=== PATIENT | male | born 1970 | race Caucasian/White ===

== ENCOUNTER 2017-04-14 10:48 | Emergency (ER) | payer SELFPAY ==
--- NOTE | 2017-04-14 12:14 | ED ORDER SUMMARY ---
..... Patient: HAYLEE MARTIN OrderSheet [facility] VisitID: [id number] [address] [place] [place] [address] 46y, M Registration Date/Time: 04/14/2017 ORDER SHEET Weight: 61.2 kg (stated) Allergies: No Known Drug Allergy GENERAL ORDERS: MEDICATION ORDERS: Albuterol Neb Tx 2.5 mg (NOW) (11:04/14/2017 Bari Roche) (11:43 LWhalcharles R.N.) DuoNeb Neb Tx 1 unit dose (NOW) (11:04/14/2017 Bair Roche) (11:43 LWhalcharles R.N.) Albuterol Neb Tx 5 mg (once now) (11:42 04/14/2017 Bari Roche) (11:44 MRobideau) IV FLUIDS: Solu-MEDROL IV 125 mg (NOW) (11:04/14/2017 Bari Roche) (11:08 LSullivan R.N.) IV Saline Lock (11:04/14/2017 Bari Roche) (11:10 LSullivan R.N.) ORDER SHEET NOTES: [Electronically signed by Shanika Solorzano R.N. (10:51 04/17/2017)] [Electronically signed by Raghav Salas Dr. (14:42 04/20/2017)] [Electronically locked/signed by Shanika Solorzano R.N. (10:51 04/17/2017)]
--- NOTE | 2017-04-14 12:14 | ED CLINICAL REPORT ---
Clinical Report - Physicians/Mid Levels [facility] [address] [place] [address] 04/14/2017 10:50 Patient: HAYLEE MARTIN Time Seen: 1100. Arrived- By private vehicle. Historian- patient. HISTORY OF PRESENT ILLNESS Chief Complaint: WHEEZING and HISTORY OF ASTHMA. This started yesterday and is still present (unchanged). It was abrupt in onset and has been constant but is not gone now. The dyspnea is described as moderate. He has had dyspnea at rest. No cough, sputum production or chest pain or discomfort. Asthma triggers: unknown. Takes asthma medications. (ran out of inhaler). Similar symptoms previously: Many times. Recent medical care: Not recently seen/assessed. REVIEW OF SYSTEMS No sore throat, nasal discharge, sinus drainage, fever or palpitations. All systems otherwise negative, except as recorded above. PAST HISTORY See nurses notes. Additional Surgeries: no known surgeries. Medications: Albuterol Sulfate HFA Inhalation. Allergies: No Known Drug Allergy. SOCIAL HISTORY Smoker- current status unknown. No alcohol use or drug use. No recent travel. Is a local resident. ADDITIONAL NOTES The nursing notes have been reviewed. PHYSICAL EXAM Vital Signs: 04/14/2017 10:58 BP: 155/127. HR: 115. RR: 32. O2 saturation: 85%. Temp: 98.6 F. Blood pressure normal. Oxygen saturation normal. Appearance: Alert. Patient in mild distress. (non-toxic). Eyes: Pupils equal, round and reactive to light. Eyes normal inspection. ENT: Ears normal. Nose normal. Pharynx normal. Uvula midline. Neck: Normal inspection. Neck supple. CVS: Normal heart rate and rhythm. Heart sounds normal. Pulses normal. Respiratory: Mild respiratory distress. Breath sounds abnormal. Expiratory moderate bilateral wheezes diffusely. No stridor, rales or rhonchi. Abdomen: Soft and nontender. No organomegaly. Skin: Skin warm and dry. Normal skin color. No rash. Normal skin turgor. Extremities: Extremities exhibit normal ROM. No lower extremity edema. PROGRESS AND PROCEDURES Course of Care: he patient is a pleasant 46-year-old male presenting for evaluation of shortness of breath. Patient is obviously wheezing on examination. Patient with history of asthma. Patient states he had run out of his inhaler. Patient was managed conservatively at this time with breathing treatments. Patient deviates from the expected course, we'll consider other options and workup includinglaboratory studies and chest x-ray. Patient is nontoxic at this time. No other abnormalities noted. Patient is afebrile. Do not feel that this is a bacterial infectious etiology. Patient's workup was remarkable for the findings above. Because the patient's improved symptoms with deep breathing treatments, patient likely with acute asthma exacerbation. Patient will be given a course of steroids and refills of his inhaler. Recommended patient follow up with his primary care Dr. for further management of his asthma/reactive airway disease. Patient states that he is in the process of obtaining a primary care Dr. Recommended patient called the number in the back of his insurance card or establish care with [facility] nearby. Patient is stable for outpatient management. Patient reported that his symptoms are now down to a 1 or 2 out of 10 in severity if 10 was a level that he first presented here to the emergency department with. Because the patient significantly improved symptoms, feel the patient is a stable outpatient candidate. I discussed with the patient isworkup here in the emergency department including diagnosis, home care, follow-up, and return precautions. All questions Have been answered. The patient expressed understanding of these instructions and was agreeable to them. Disposition: Discharged. Condition: good. CLINICAL IMPRESSION 04/14/2017 11:02 BP: 131/82. HR: 114. RR: 25. O2 saturation: 100%. Blood pressure normal. Oxygen saturation normal. Moderate persistent asthma with an acute exacerbation. No status asthmaticus. Hypoxia (acute resolved). INSTRUCTIONS Warnings: GENERAL WARNINGS: Return or contact your physician immediately if your condition worsens or changes unexpectedly, if not improving as expected, or if other problems arise. Specifically return if pain, vomiting, bleeding, breathing difficulty or fever. Your Current Medications: CONTINUE TAKING THE FOLLOWING MEDICATIONS: Albuterol Sulfate HFA Inhalation. Prescription Medications: Albuterol HFA oral inhaler: inhale 1-2 puffs via spacer every 4 hours as needed for wheezing, difficulty breathing or shortness of breath. Dispense two (2) units. No refill. Prednisone 50 mg: take 1 orally every day for 5 days. Dispense five (5). No refills. Follow-up: Return to the emergency department as needed. Follow up with your doctor in three days. Reason for referral: recheck today's concerns. Summary of care provided to patient via paper. Screening today revealed the patient's blood pressure to be in the normal range. The patient should follow up with a primary care provider for blood pressure management. Understanding of the discharge instructions verbalized by patient. (Electronically signed by Raghav Salas Dr. 04/20/2017 14:42)
--- NOTE | 2017-04-14 12:14 | ED NURSING NOTES ---
Clinical Report - Nurses [facility] [place] [address] [address] 04/14/2017 10:50 Patient: HAYLEE MARTIN TRIAGE Triage time 10:48 Apr 14 2017. Acuity: LEVEL 2. Chief Complaint: "ASTHMA ATTACK" and WHEEZING. NATHEN COMA SCORE: [place] Coma Scale: 15- eyes open spontaneously (4); best verbal response- oriented x 4 (5); best motor response- obeys commands (6). --11:01 Shanika Solorzano R.N. 10:58 04/14/17. BP: 155/127. HR: 115. RR: 32. O2 saturation: 85%. Temp: 98.6 F. Pain level now 0/10. --11:01 Shanika Solorzano R.N. Weight: 61.2 kg stated. Height/Length: 66 inches Per Patient. BMI: 21.8. --11:01 Shanika Solorzano R.N. Medications Albuterol Sulfate HFA Inhalation. --10:59 Shanika Solorzano R.N. Allergies No Known Drug Allergy. --10:59 Shanika Solorzano R.N. History Arrived by private vehicle. Historian: patient. Accompanied by friend. This started just prior to arrival. ( Ran out of albuterol inhaler and had asthma attack prior to arrival.). He has had a cough and wheezing. No fever, chills, chest pain or back pain. Treatment MAINSPRING WINDER AND OILER: None. PAST MEDICAL HX: Asthma. Chronic obstructive pulmonary disease. No history of congestive heart failure, diabetes mellitus or hypertension. Immunizations: up-to-date. SOCIAL HX: Current every day light tobacco smoker (cigarette)- less than 1/2 a pack per day. No alcohol use or drug use. SELF HARM ASSESSMENT: A self harm assessment was performed. The patient answered "no" to the question "Have you recently felt down, depressed, or hopeless?" and "Do you have thoughts of harming or killing yourself?". FALL RISK ASSESSMENT: Fall risk assessment completed. No fall risk identified. NUTRITIONAL RISK ASSESSMENT: The nutritional risk assessment revealed no deficiencies. FUNCTIONAL ASSESSMENT: Functional assessment: no impairments noted. LEARNING NEEDS ASSESSMENT: The learning needs assessment revealed no barriers. ABUSE ASSESSMENT: Abuse assessment: (yes) The patient was asked "Do you feel safe in your home?". SKIN INTEGRITY ASSESSMENT: Skin integrity risk assessment completed. No skin integrity risk identified. --11:01 Shanika Solorzano R.N. ( Received call from admitting that a patient was checking in and was having an asthma attack, prior to triage, brought back immediately to ED, RT notified on arrival and came down to give neb treatments. Pt started feeling better after the first treatment.). --11:13 Kaycee Brown R.N. PROBLEMS: COPD - Chronic Obstructive Pulmonary Disease. Asthma. --10:59 Shanika Solorzano R.N. ADDITIONAL SURGERIES: no known surgeries. Interventions ID band on patient. --11: Shanika Solorzano R.N. PHYSICAL ASSESSMENT Ambulatory to room. GENERAL / NEURO / PSYCH: Alert. Oriented X 4. Appears in distress. HEENT: Mucous membranes are pink. RESPIRATORY: Moderate respiratory distress. The patient can speak one word at a time. Accessory muscle use. Wheezing present. CVS: Normal sinus rhythm noted. Cardiac rhythm: sinus tachycardia. Capillary refill less than 2 seconds. GI / : Abdomen soft and nontender. Bowel sounds within normal limits. SKIN: Skin is warm and dry. Normal skin turgor. --11:02 Shanika Solorzano R.N. NURSING PROGRESS NOTES The initial plan of care for this patient includes an assessment with efforts to address patient positioning, appropriate ambient lighting and comfortable environmental temperature; impairment of the respiratory system. child monitor, pulse oximeter and NIBP monitor placed on patient. Head of bed elevated 90 degrees. Reassurance given. Call light placed in reach. Side rails up x 1. Bed placed in lowest position. Brakes of bed on. --11: Shanika Solorzano R.N. 11:02 04/14/17. BP: 131/82. HR: 114. RR: 25. O2 saturation: 100%. Pain level now 0/10. --11:02 Shanika Solorzano R.N. 10:58 04/14/2017 Site #1 started via IV in the right hand with an 20g angiocath, with aseptic technique and good blood return; one attempt. Blood drawn: rainbow set. Labeled in the presence of the patient and sent to the lab. Saline lock flushed with 10 mL saline. --11:03 Shanika Solorzano R.N. 11:08 04/14/2017 SOLU-MEDROL (MethylPREDNISolone Sodium Succ) IVP 125 mg given over 3 minute(s) via site #1. Allergies verified and confirmed 5 rights. --11:08 Kaycee Brown R.N. 11:18 04/14/2017 Albuterol Neb TX Nebulizer 2.5 mg given. Given by the respiratory therapist. Allergies verified and confirmed 5 rights. --11:43 Shanika Solorzano R.N. 11:28 04/14/2017 Duoneb (Ipratropium-Albuterol) Neb TX Nebulizer 1 unit dose given. Given by the respiratory therapist. Allergies verified and confirmed 5 rights. --11:43 Shanika Solorzano R.N. 11:44 04/14/2017 Albuterol Neb TX Nebulizer 2 unit dose given. Given by the respiratory therapist. Allergies verified and confirmed 5 rights. --11:44 Ryan Gardner 12:30 04/14/17. BP: 123/79. HR: 72. RR: 16. O2 saturation: 95% on room air. 12:15 04/14/17. BP: 125/87. HR: 88. RR: 18. O2 saturation: 96% on room air. 12:00 04/14/17. BP: 93/78. HR: 72. RR: 20. O2 saturation: 95%. 11:45 04/14/17. BP: 111/78. HR: 82. RR: 18. O2 saturation: 95%. 11:25 04/14/17. BP: 117/80. HR: 90. RR: 22. O2 saturation: 98%. --12:48 Shanika Solorzano R.N. DISPOSITION / DISCHARGE Departure time: 12:45 Apr 14 2017. Condition at departure: improved. No learning barriers present. Discharge instructions provided and reviewed with the patient. Reviewed warnings. Reviewed medication(s). Treatments reviewed. Reviewed referrals. Patient verbalized understanding. Written instructions provided in Spanish. The patient was discharged home and accompanied by fiberline supervisor. He left the Emergency Department ambulatory and via private vehicle. Supervisor Production Managing driving. --12:45 Shnaika Solorzano R.N. 12:44 04/14/17. BP: 113/72. HR: 74. RR: 13. O2 saturation: 95%. Temp: 98.6 F. Pain level now 0/10. --12:45 Shanika Solorzano R.N. 12:40 04/14/2017 Site #1 removed upon discharge. Catheter intact. Pressure dressing applied. --12:45 Shanika Solorzano R.N. Locked/Released at 04/17/2017 10:51 by Shanika Solorzano R.N.
--- NOTE | 2017-04-14 12:14 | ED ORDER SUMMARY ---
..... Patient: HAYLEE MARTIN OrderSheet [facility] VisitID: [id number] [address] [place] [address] 46y, M Registration Date/Time: 04/14/2017 ORDER SHEET Weight: 61.2 kg (stated) Allergies: No Known Drug Allergy GENERAL ORDERS: MEDICATION ORDERS: Albuterol Neb Tx 2.5 mg (NOW) (11:04/14/2017 Bari Roche) (11:43 LWhalcharles R.N.) DuoNeb Neb Tx 1 unit dose (NOW) (11:04/14/2017 Bari Roche) (11:43 LWhalcharles R.N.) Albuterol Neb Tx 5 mg (once now) (11:42 04/14/2017 Bari Roche) (11:44 MRobideau) IV FLUIDS: Solu-MEDROL IV 125 mg (NOW) (11:04/14/2017 Bari Roche) (11:08 LSullivan R.N.) IV Saline Lock (11:04/14/2017 Bari Roche) (11:10 LSullivan R.N.) ORDER SHEET NOTES: [Electronically signed by Shanika Solorzano R.N. (10:51 04/17/2017)] [Electronically signed by Raghav Salas Dr. (14:42 04/20/2017)] [Electronically locked/signed by Shanika Solorzano R.N. (10:51 04/17/2017)]
--- NOTE | 2017-04-14 12:14 | ED NURSING NOTES ---
Clinical Report - Nurses [facility] [place] [address] [place] [address] 04/14/2017 10:50 Patient: HAYLEE MARTIN TRIAGE Triage time 10:48 Apr 14 2017. Acuity: LEVEL 2. Chief Complaint: "ASTHMA ATTACK" and WHEEZING. NATHEN COMA SCORE: [place] Coma Scale: 15- eyes open spontaneously (4); best verbal response- oriented x 4 (5); best motor response- obeys commands (6). --11:01 Shanika Solorzano R.N. 10:58 04/14/17. BP: 155/127. HR: 115. RR: 32. O2 saturation: 85%. Temp: 98.6 F. Pain level now 0/10. --11:01 Shanika Solorzano R.N. Weight: 61.2 kg stated. Height/Length: 66 inches Per Patient. BMI: 21.8. --11:01 Shanika Solorzano R.N. Medications Albuterol Sulfate HFA Inhalation. --10:59 Shanika Solorzano R.N. Allergies No Known Drug Allergy. --10:59 Shanika Solorzano R.N. History Arrived by private vehicle. Historian: patient. Accompanied by friend. This started just prior to arrival. ( Ran out of albuterol inhaler and had asthma attack prior to arrival.). He has had a cough and wheezing. No fever, chills, chest pain or back pain. Treatment PROCESSING ANALYST: None. PAST MEDICAL HX: Asthma. Chronic obstructive pulmonary disease. No history of congestive heart failure, diabetes mellitus or hypertension. Immunizations: up-to-date. SOCIAL HX: Current every day light tobacco smoker (cigarette)- less than 1/2 a pack per day. No alcohol use or drug use. SELF HARM ASSESSMENT: A self harm assessment was performed. The patient answered "no" to the question "Have you recently felt down, depressed, or hopeless?" and "Do you have thoughts of harming or killing yourself?". FALL RISK ASSESSMENT: Fall risk assessment completed. No fall risk identified. NUTRITIONAL RISK ASSESSMENT: The nutritional risk assessment revealed no deficiencies. FUNCTIONAL ASSESSMENT: Functional assessment: no impairments noted. LEARNING NEEDS ASSESSMENT: The learning needs assessment revealed no barriers. ABUSE ASSESSMENT: Abuse assessment: (yes) The patient was asked "Do you feel safe in your home?". SKIN INTEGRITY ASSESSMENT: Skin integrity risk assessment completed. No skin integrity risk identified. --11:01 Shanika Solorzano R.N. ( Received call from admitting that a patient was checking in and was having an asthma attack, prior to triage, brought back immediately to ED, RT notified on arrival and came down to give neb treatments. Pt started feeling better after the first treatment.). --11:13 Kaycee Brown R.N. PROBLEMS: COPD - Chronic Obstructive Pulmonary Disease. Asthma. --10:59 Shanika Solorzano R.N. ADDITIONAL SURGERIES: no known surgeries. Interventions ID band on patient. --11: Shanika Solorzano R.N. PHYSICAL ASSESSMENT Ambulatory to room. GENERAL / NEURO / PSYCH: Alert. Oriented X 4. Appears in distress. HEENT: Mucous membranes are pink. RESPIRATORY: Moderate respiratory distress. The patient can speak one word at a time. Accessory muscle use. Wheezing present. CVS: Normal sinus rhythm noted. Cardiac rhythm: sinus tachycardia. Capillary refill less than 2 seconds. GI / : Abdomen soft and nontender. Bowel sounds within normal limits. SKIN: Skin is warm and dry. Normal skin turgor. --11:02 Shanika Solorzano R.N. NURSING PROGRESS NOTES The initial plan of care for this patient includes an assessment with efforts to address patient positioning, appropriate ambient lighting and comfortable environmental temperature; impairment of the respiratory system. environmental health and safety intern, pulse oximeter and NIBP monitor placed on patient. Head of bed elevated 90 degrees. Reassurance given. Call light placed in reach. Side rails up x 1. Bed placed in lowest position. Brakes of bed on. --11: Shanika Solorzano R.N. 11:02 04/14/17. BP: 131/82. HR: 114. RR: 25. O2 saturation: 100%. Pain level now 0/10. --11:02 Shanika Solorzano R.N. 10:58 04/14/2017 Site #1 started via IV in the right hand with an 20g angiocath, with aseptic technique and good blood return; one attempt. Blood drawn: rainbow set. Labeled in the presence of the patient and sent to the lab. Saline lock flushed with 10 mL saline. --11:03 Shanika Solorzano R.N. 11:08 04/14/2017 SOLU-MEDROL (MethylPREDNISolone Sodium Succ) IVP 125 mg given over 3 minute(s) via site #1. Allergies verified and confirmed 5 rights. --11:08 Kaycee Brown R.N. 11:18 04/14/2017 Albuterol Neb TX Nebulizer 2.5 mg given. Given by the respiratory therapist. Allergies verified and confirmed 5 rights. --11:43 Shanika Solorzano R.N. 11:28 04/14/2017 Duoneb (Ipratropium-Albuterol) Neb TX Nebulizer 1 unit dose given. Given by the respiratory therapist. Allergies verified and confirmed 5 rights. --11:43 Shanika Solorzano R.N. 11:44 04/14/2017 Albuterol Neb TX Nebulizer 2 unit dose given. Given by the respiratory therapist. Allergies verified and confirmed 5 rights. --11:44 Ryan Gardner 12:30 04/14/17. BP: 123/79. HR: 72. RR: 16. O2 saturation: 95% on room air. 12:15 04/14/17. BP: 125/87. HR: 88. RR: 18. O2 saturation: 96% on room air. 12:00 04/14/17. BP: 93/78. HR: 72. RR: 20. O2 saturation: 95%. 11:45 04/14/17. BP: 111/78. HR: 82. RR: 18. O2 saturation: 95%. 11:25 04/14/17. BP: 117/80. HR: 90. RR: 22. O2 saturation: 98%. --12:48 Shanika Solorzano R.N. DISPOSITION / DISCHARGE Departure time: 12:45 Apr 14 2017. Condition at departure: improved. No learning barriers present. Discharge instructions provided and reviewed with the patient. Reviewed warnings. Reviewed medication(s). Treatments reviewed. Reviewed referrals. Patient verbalized understanding. Written instructions provided in [place]. The patient was discharged home and accompanied by final inspector movement assembly. He left the Emergency Department ambulatory and via private vehicle. Loss Prevention Auditor driving. --12:45 Shanika Solorzano R.N. 12:44 04/14/17. BP: 113/72. HR: 74. RR: 13. O2 saturation: 95%. Temp: 98.6 F. Pain level now 0/10. --12:45 Shanika Solorzano R.N. 12:40 04/14/2017 Site #1 removed upon discharge. Catheter intact. Pressure dressing applied. --12:45 Shanika Solorzano R.N. Locked/Released at 04/17/2017 10:51 by Shanika Solorzano R.N.
--- NOTE | 2017-04-20 14:42 | ED MAR SUMMARY ---
..... Medication Administration Record [facility] [address] [place] [address] Patient: HAYLEE MARTIN Visit ID: [id number] 46y, M Weight: 61.2 kg Height/Length: 66 in BMI: 21.8 ALLERGIES: No Known Drug Allergy Given 11:08 04/14/2017 Kaycee Brown R.N. Medication Administered: SOLU-MEDROL [IVP] (METHYLPREDNISOLONE SODIUM SUCC), Dose: 125 mg IVP over 3 minute(s), Site: #1 right hand. Medication Ordered: Solu-MEDROL IV 125 mg (NOW). Given 11:18 04/14/2017 Shanika Solorzano R.N. Medication Administered: ALBUTEROL [NEB TX], Dose: 2.5 mg Nebulizer Neb TX. Medication Ordered: Albuterol Neb Tx 2.5 mg (NOW). Given 11:28 04/14/2017 Shanika Solorzano R.N. Medication Administered: DUONEB [NEB TX] (IPRATROPIUM-ALBUTEROL), Dose: 1 unit dose Nebulizer Neb TX. Medication Ordered: DuoNeb Neb Tx 1 unit dose (NOW). Given 11:44 04/14/2017 Ryan Gardner, Medication Administered: ALBUTEROL [NEB TX], Dose: 2 unit dose Nebulizer Neb TX. Medication Ordered: Albuterol Neb Tx 5 mg (once now).
--- NOTE | 2017-04-20 14:42 | ED DISCHARGE INSTRUCTIONS ---
Patient: HAYLEE MARTIN General Instructions [facility] VisitID: [id number] [address] [place] [address] 46y, M Registration Date/Time: 04/14/2017 04/14/2017 11:02 BP: 131/82. HR: 114. RR: 25. O2 saturation: 100%. Blood pressure normal. Oxygen saturation normal. Moderate persistent asthma with an acute exacerbation. No status asthmaticus. Hypoxia (acute resolved). INSTRUCTIONS Warnings: GENERAL WARNINGS: Return or contact your physician immediately if your condition worsens or changes unexpectedly, if not improving as expected, or if other problems arise. Specifically return if pain, vomiting, bleeding, breathing difficulty or fever. Your Current Medications: CONTINUE TAKING THE FOLLOWING MEDICATIONS: Albuterol Sulfate HFA Inhalation. Prescription Medications: Albuterol HFA oral inhaler: inhale 1-2 puffs via spacer every 4 hours as needed for wheezing, difficulty breathing or shortness of breath. Dispense two (2) units. No refill. Prednisone 50 mg: take 1 orally every day for 5 days. Dispense five (5). No refills. Follow-up: Return to the emergency department as needed. Follow up with your doctor in three days. Reason for referral: recheck today's concerns. Summary of care provided to patient via paper. Screening today revealed the patient's blood pressure to be in the normal range. The patient should follow up with a primary care provider for blood pressure management. Understanding of the discharge instructions verbalized by patient. ADDITIONAL INFORMATION Asthma [Adult] Asthma is a disease where the small air passages within the lung go into spasm and restrict the flow of air. Inflammation and swelling of the airways cause further restriction. During an acute asthma attack, these factors cause difficulty breathing, wheezing, cough and chest tightness. An asthma attack can be triggered by many things. Common triggers include the common cold, bronchitis, pneumonia, irritants such as smoke or pullutants in the air, emotional upset and heavy exercise. Inmany adults with asthma, allergies todust, mold, pollen and animal dander can cause an asthma attack. Skipping doses of daily asthma medicine can also bring on an asthma attack. Asthma can be controlled with proper medicines and decreased exposure to known allergens. Home Care: Take prescribed medicine exactly at the times advised. If you have a hand-held inhaler or aerosol breathing medicine, do not use it more than once every four hours, unless told to do so. (If you need this medicine more than every four hours, you may need to return to the Emergency Room.) If prescribed an antibiotic or prednisone, take all of the medicine even if you are feeling better after a few days. Do not smoke. Avoid being exposed to the smoke of others. Some persons with asthma have worsening of their symptoms when they take aspirin and non-steroidal medicines like ibuprofen (Motrin, Advil) and naproxen (Aleve, Naprosyn). Talk to your doctor if you think this may apply to you. Acetaminophen (Tylenol)should be safe to use. Follow Up with your doctor, or as advised by our staff. Always bring all of your current medicines with you for your doctor to see. If you do not already have one, talk to your doctor about developing a personalized "Asthma Action Plan." [NOTE: A pneumococcal vaccine and yearly flu shot (every fall) are recommended. Ask your doctor about this.] Get Prompt Medical Attention if any of the following occur: Increased wheezing or shortness of breath Need to use your inhalers more often than usual without relief Fever of 100.4F (38C) or higher, or as directed by your healthcare provider Coughing up lots of dark-colored or bloody sputum (mucus) Chest pain with each breath You do not start to improve within 24 hours Call 911 If Any Of The Following Occur : Trouble walking or talking because of shortness of breath If you use a peak flow meter andyou are still in the red zone (less than 50 percent) 15 minutes after using inhaler medication Lips or fingernails turning narvaez or blue Albuterol Sulfate Pressurized inhalation, suspension What is this medicine? ALBUTEROL (al BYOO ter ole) is a bronchodilator. It helps open up the airways in your lungs to make it easier to breathe. This medicine is used to treat and to prevent bronchospasm. How should I use this medicine? This medicine is for inhalation through the mouth. Follow the directions on your prescription label. Take your medicine at regular intervals. Do not use more often than directed. Make sure that you are using your inhaler correctly. Ask you doctor or health care provider if you have any questions. Talk to your liner checker regarding the use of this medicine in children. Special care may be needed. What side effects may I notice from receiving this medicine? Side effects that you should report to your doctor or health medicare specialist as soon as possible: allergic reactions like skin rash, itching or hives, swelling of the face, lips, or tongue breathing problems chest pain feeling faint or lightheaded, falls high blood pressure irregular heartbeat fever muscle cramps or weakness pain, tingling, numbness in the hands or feet vomiting Side effects that usually do not require medical attention (report to your doctor or health medicare specialist if they continue or are bothersome): cough difficulty sleeping headache nervousness or trembling stomach upset stuffy or runny nose throat irritation unusual taste What may interact with this medicine? anti-infectives like chloroquine and pentamidine caffeine cisapride diuretics medicines for colds medicines for depression or for emotional or psychotic conditions medicines for weight loss including some herbal products methadone some antibiotics like clarithromycin, erythromycin, levofloxacin, and linezolid some heart medicines steroid hormones like dexamethasone, cortisone, hydrocortisone theophylline thyroid hormones What if I miss a dose? If you miss a dose, use it as soon as you can. If it is almost time for your next dose, use only that dose. Do not use double or extra doses. Where should I keep my medicine? Keep out of the reach of children. Store at room temperature between 15 and 30 degrees C (59 and 86 degrees F). The contents are under pressure and may burst when exposed to heat or flame. Do not freeze. This medicine does not work as well if it is too cold. Throw away any unused medicine after the expiration date. Inhalers need to be thrown away after the labeled number of puffs have been used or by the expiration date; whichever comes first. Ventolin HFA should be thrown away 12 months after removing from foil pouch. Check the instructions that come with your medicine. What should I tell my health care provider before I take this medicine? They need to know if you have any of the following conditions: diabetes heart disease or irregular heartbeat high blood pressure pheochromocytoma seizures thyroid disease an unusual or allergic reaction to albuterol, levalbuterol, sulfites, other medicines, foods, dyes, or preservatives or trying to get breast-feeding What should I watch for while using this medicine? Tell your doctor or health medicare specialist if your symptoms do not improve. Do not use extra albuterol. If your asthma or bronchitis gets worse while you are using this medicine, call your doctor right away. If your mouth gets dry try chewing sugarless gum or sucking hard candy. Drink water as directed. Prednisone Oral tablet What is this medicine? PREDNISONE (PRED ni sone) is a corticosteroid. It is commonly used to treat inflammation of the skin, joints, lungs, and other organs. Common conditions treated include asthma, allergies, and arthritis. It is also used for other conditions, such as blood disorders and diseases of the adrenal glands. How should I use this medicine? Take this medicine by mouth with a glass of water. Follow the directions on the prescription label. Take this medicine with food. If you are taking this medicine once a day, take it in the morning. Do not take more medicine than you are told to take. Do not suddenly stop taking your medicine because you may develop a severe reaction. Your doctor will tell you how much medicine to take. If your doctor wants you to stop the medicine, the dose may be slowly lowered over time to avoid any side effects. Talk to your liner checker regarding the use of this medicine in children. Special care may be needed. What side effects may I notice from receiving this medicine? Side effects that you should report to your doctor or health medicare specialist as soon as possible: allergic reactions like skin rash, itching or hives, swelling of the face, lips, or tongue changes in emotions or moods changes in vision depressed mood eye pain fever or chills, cough, sore throat, pain or difficulty passing urine increased thirst swelling of ankles, feet Side effects that usually do not require medical attention (report to your doctor or health medicare specialist if they continue or are bothersome): confusion, excitement, restlessness headache nausea, vomiting skin problems, acne, thin and shiny skin trouble sleeping weight gain What may interact with this medicine? Do not take this medicine with any of the following medications: metyrapone mifepristone This medicine may also interact with the following medications: aminoglutethimide amphotericin B aspirin and aspirin-like medicines barbiturates certain medicines for diabetes, like glipizide or glyburide cholestyramine cholinesterase inhibitors cyclosporine digoxin diuretics ephedrine female hormones, like estrogens and control pills isoniazid ketoconazole NSAIDS, medicines for pain and inflammation, like ibuprofen or naproxen phenytoin rifampin toxoids vaccines warfarin What if I miss a dose? If you miss a dose, take it as soon as you can. If it is almost time for your next dose, talk to your doctor or health medicare specialist. You may need to miss a dose or take an extra dose. Do not take double or extra doses without advice. Where should I keep my medicine? Keep out of the reach of children. Store at room temperature between 15 and 30 degrees C (59 and 86 degrees F). Protect from light. Keep container tightly closed. Throw away any unused medicine after the expiration date. What should I tell my health care provider before I take this medicine? They need to know if you have any of these conditions: Bucky's syndrome diabetes glaucoma heart disease high blood pressure infection (especially a virus infection such as chickenpox, cold sores, or herpes) kidney disease liver disease mental illness myasthenia gravis osteoporosis seizures stomach or intestine problems thyroid disease an unusual or allergic reaction to lactose, prednisone, other medicines, foods, dyes, or preservatives or trying to get breast-feeding What should I watch for while using this medicine? Visit your doctor or health medicare specialist for regular checks on your progress. If you are taking this medicine over a prolonged period, carry an identification card with your name and address, the type and dose of your medicine, and your doctor's name and address. This medicine may increase your risk of getting an infection. Tell your doctor or health medicare specialist if you are around anyone with measles or chickenpox, or if you develop sores or blisters that do not heal properly. If you are going to have surgery, tell your doctor or health medicare specialist that you have taken this medicine within the last twelve months. Ask your doctor or health medicare specialist about your diet. You may need to lower the amount of salt you eat. This medicine may affect blood sugar levels. If you have diabetes, check with your doctor or health medicare specialist before you change your diet or the dose of your diabetic medicine. You have been given the following additional information: Asthma, Acute (Adult) Albuterol Sulfate Pressurized inhalation, suspension Prednisone Oral tablet (Electronically signed by Raghav Salas Dr. 04/20/2017 14:42)
--- NOTE | 2017-04-20 14:42 | ED MED RECONCILIATION SUMMARY ---
Patient: HAYLEE MARTIN Medication Reconciliation Report [facility] VisitID: [id number] [address] [place] [address] 46y, M Registration Date/Time: 04/14/2017 Weight: 61.2 kg Height/Length: 66 in. BMI: 21.8 ALLERGIES: No Known Drug Allergy The patient's Home Medications are listed below: CONTINUE TAKING THE FOLLOWING MEDICATIONS: Albuterol Sulfate HFA Inhalation The source(s) of the original Home Medication information: Not obtained. The following Medications were given to the patient in the Emergency Department: SOLU-MEDROL [IVP] IVP 125 mg, administered: 04/14/2017 11:08:00 AM Albuterol [Neb Tx] Neb TX 2.5 mg, administered: 04/14/2017 11:18:00 AM Duoneb [Neb Tx] Neb TX 1 unit dose, administered: 04/14/2017 11:28:00 AM Albuterol [Neb Tx] Neb TX 2 unit dose, administered: 04/14/2017 11:44:00 AM The following Medications were prescribed to the patient: Albuterol HFA oral inhaler: inhale 1-2 puffs via spacer every 4 hours as needed for wheezing, difficulty breathing or shortness of breath. Dispense two (2) units. No refill. -- Raghav Salas Dr. Prednisone 50 mg: take 1 orally every day for 5 days. Dispense five (5). No refills. -- Raghav Salas Dr.
--- NOTE | 2017-04-20 14:42 | ED DISCHARGE INSTRUCTIONS ---
Patient: HAYLEE MARTIN General Instructions [facility] VisitID: [id number] [address] [place] [address] 46y, M Registration Date/Time: 04/14/2017 04/14/2017 11:02 BP: 131/82. HR: 114. RR: 25. O2 saturation: 100%. Blood pressure normal. Oxygen saturation normal. Moderate persistent asthma with an acute exacerbation. No status asthmaticus. Hypoxia (acute resolved). INSTRUCTIONS Warnings: GENERAL WARNINGS: Return or contact your physician immediately if your condition worsens or changes unexpectedly, if not improving as expected, or if other problems arise. Specifically return if pain, vomiting, bleeding, breathing difficulty or fever. Your Current Medications: CONTINUE TAKING THE FOLLOWING MEDICATIONS: Albuterol Sulfate HFA Inhalation. Prescription Medications: Albuterol HFA oral inhaler: inhale 1-2 puffs via spacer every 4 hours as needed for wheezing, difficulty breathing or shortness of breath. Dispense two (2) units. No refill. Prednisone 50 mg: take 1 orally every day for 5 days. Dispense five (5). No refills. Follow-up: Return to the emergency department as needed. Follow up with your doctor in three days. Reason for referral: recheck today's concerns. Summary of care provided to patient via paper. Screening today revealed the patient's blood pressure to be in the normal range. The patient should follow up with a primary care provider for blood pressure management. Understanding of the discharge instructions verbalized by patient. ADDITIONAL INFORMATION Asthma [Adult] Asthma is a disease where the small air passages within the lung go into spasm and restrict the flow of air. Inflammation and swelling of the airways cause further restriction. During an acute asthma attack, these factors cause difficulty breathing, wheezing, cough and chest tightness. An asthma attack can be triggered by many things. Common triggers include the common cold, bronchitis, pneumonia, irritants such as smoke or pullutants in the air, emotional upset and heavy exercise. Inmany adults with asthma, allergies todust, mold, pollen and animal dander can cause an asthma attack. Skipping doses of daily asthma medicine can also bring on an asthma attack. Asthma can be controlled with proper medicines and decreased exposure to known allergens. Home Care: Take prescribed medicine exactly at the times advised. If you have a hand-held inhaler or aerosol breathing medicine, do not use it more than once every four hours, unless told to do so. (If you need this medicine more than every four hours, you may need to return to the Emergency Room.) If prescribed an antibiotic or prednisone, take all of the medicine even if you are feeling better after a few days. Do not smoke. Avoid being exposed to the smoke of others. Some persons with asthma have worsening of their symptoms when they take aspirin and non-steroidal medicines like ibuprofen (Motrin, Advil) and naproxen (Aleve, Naprosyn). Talk to your doctor if you think this may apply to you. Acetaminophen (Tylenol)should be safe to use. Follow Up with your doctor, or as advised by our staff. Always bring all of your current medicines with you for your doctor to see. If you do not already have one, talk to your doctor about developing a personalized "Asthma Action Plan." [NOTE: A pneumococcal vaccine and yearly flu shot (every fall) are recommended. Ask your doctor about this.] Get Prompt Medical Attention if any of the following occur: Increased wheezing or shortness of breath Need to use your inhalers more often than usual without relief Fever of 100.4F (38C) or higher, or as directed by your healthcare provider Coughing up lots of dark-colored or bloody sputum (mucus) Chest pain with each breath You do not start to improve within 24 hours Call 911 If Any Of The Following Occur : Trouble walking or talking because of shortness of breath If you use a peak flow meter andyou are still in the red zone (less than 50 percent) 15 minutes after using inhaler medication Lips or fingernails turning narvaez or blue Albuterol Sulfate Pressurized inhalation, suspension What is this medicine? ALBUTEROL (al BYOO ter ole) is a bronchodilator. It helps open up the airways in your lungs to make it easier to breathe. This medicine is used to treat and to prevent bronchospasm. How should I use this medicine? This medicine is for inhalation through the mouth. Follow the directions on your prescription label. Take your medicine at regular intervals. Do not use more often than directed. Make sure that you are using your inhaler correctly. Ask you doctor or health care provider if you have any questions. Talk to your pit laborer regarding the use of this medicine in children. Special care may be needed. What side effects may I notice from receiving this medicine? Side effects that you should report to your doctor or health caregiver services home as soon as possible: allergic reactions like skin rash, itching or hives, swelling of the face, lips, or tongue breathing problems chest pain feeling faint or lightheaded, falls high blood pressure irregular heartbeat fever muscle cramps or weakness pain, tingling, numbness in the hands or feet vomiting Side effects that usually do not require medical attention (report to your doctor or health caregiver services home if they continue or are bothersome): cough difficulty sleeping headache nervousness or trembling stomach upset stuffy or runny nose throat irritation unusual taste What may interact with this medicine? anti-infectives like chloroquine and pentamidine caffeine cisapride diuretics medicines for colds medicines for depression or for emotional or psychotic conditions medicines for weight loss including some herbal products methadone some antibiotics like clarithromycin, erythromycin, levofloxacin, and linezolid some heart medicines steroid hormones like dexamethasone, cortisone, hydrocortisone theophylline thyroid hormones What if I miss a dose? If you miss a dose, use it as soon as you can. If it is almost time for your next dose, use only that dose. Do not use double or extra doses. Where should I keep my medicine? Keep out of the reach of children. Store at room temperature between 15 and 30 degrees C (59 and 86 degrees F). The contents are under pressure and may burst when exposed to heat or flame. Do not freeze. This medicine does not work as well if it is too cold. Throw away any unused medicine after the expiration date. Inhalers need to be thrown away after the labeled number of puffs have been used or by the expiration date; whichever comes first. Ventolin HFA should be thrown away 12 months after removing from foil pouch. Check the instructions that come with your medicine. What should I tell my health care provider before I take this medicine? They need to know if you have any of the following conditions: diabetes heart disease or irregular heartbeat high blood pressure pheochromocytoma seizures thyroid disease an unusual or allergic reaction to albuterol, levalbuterol, sulfites, other medicines, foods, dyes, or preservatives or trying to get breast-feeding What should I watch for while using this medicine? Tell your doctor or health caregiver services home if your symptoms do not improve. Do not use extra albuterol. If your asthma or bronchitis gets worse while you are using this medicine, call your doctor right away. If your mouth gets dry try chewing sugarless gum or sucking hard candy. Drink water as directed. Prednisone Oral tablet What is this medicine? PREDNISONE (PRED ni sone) is a corticosteroid. It is commonly used to treat inflammation of the skin, joints, lungs, and other organs. Common conditions treated include asthma, allergies, and arthritis. It is also used for other conditions, such as blood disorders and diseases of the adrenal glands. How should I use this medicine? Take this medicine by mouth with a glass of water. Follow the directions on the prescription label. Take this medicine with food. If you are taking this medicine once a day, take it in the morning. Do not take more medicine than you are told to take. Do not suddenly stop taking your medicine because you may develop a severe reaction. Your doctor will tell you how much medicine to take. If your doctor wants you to stop the medicine, the dose may be slowly lowered over time to avoid any side effects. Talk to your pit laborer regarding the use of this medicine in children. Special care may be needed. What side effects may I notice from receiving this medicine? Side effects that you should report to your doctor or health caregiver services home as soon as possible: allergic reactions like skin rash, itching or hives, swelling of the face, lips, or tongue changes in emotions or moods changes in vision depressed mood eye pain fever or chills, cough, sore throat, pain or difficulty passing urine increased thirst swelling of ankles, feet Side effects that usually do not require medical attention (report to your doctor or health caregiver services home if they continue or are bothersome): confusion, excitement, restlessness headache nausea, vomiting skin problems, acne, thin and shiny skin trouble sleeping weight gain What may interact with this medicine? Do not take this medicine with any of the following medications: metyrapone mifepristone This medicine may also interact with the following medications: aminoglutethimide amphotericin B aspirin and aspirin-like medicines barbiturates certain medicines for diabetes, like glipizide or glyburide cholestyramine cholinesterase inhibitors cyclosporine digoxin diuretics ephedrine female hormones, like estrogens and control pills isoniazid ketoconazole NSAIDS, medicines for pain and inflammation, like ibuprofen or naproxen phenytoin rifampin toxoids vaccines warfarin What if I miss a dose? If you miss a dose, take it as soon as you can. If it is almost time for your next dose, talk to your doctor or health caregiver services home. You may need to miss a dose or take an extra dose. Do not take double or extra doses without advice. Where should I keep my medicine? Keep out of the reach of children. Store at room temperature between 15 and 30 degrees C (59 and 86 degrees F). Protect from light. Keep container tightly closed. Throw away any unused medicine after the expiration date. What should I tell my health care provider before I take this medicine? They need to know if you have any of these conditions: Bucky's syndrome diabetes glaucoma heart disease high blood pressure infection (especially a virus infection such as chickenpox, cold sores, or herpes) kidney disease liver disease mental illness myasthenia gravis osteoporosis seizures stomach or intestine problems thyroid disease an unusual or allergic reaction to lactose, prednisone, other medicines, foods, dyes, or preservatives or trying to get breast-feeding What should I watch for while using this medicine? Visit your doctor or health caregiver services home for regular checks on your progress. If you are taking this medicine over a prolonged period, carry an identification card with your name and address, the type and dose of your medicine, and your doctor's name and address. This medicine may increase your risk of getting an infection. Tell your doctor or health caregiver services home if you are around anyone with measles or chickenpox, or if you develop sores or blisters that do not heal properly. If you are going to have surgery, tell your doctor or health caregiver services home that you have taken this medicine within the last twelve months. Ask your doctor or health caregiver services home about your diet. You may need to lower the amount of salt you eat. This medicine may affect blood sugar levels. If you have diabetes, check with your doctor or health caregiver services home before you change your diet or the dose of your diabetic medicine. You have been given the following additional information: Asthma, Acute (Adult) Albuterol Sulfate Pressurized inhalation, suspension Prednisone Oral tablet (Electronically signed by Raghav Salas Dr. 04/20/2017 14:42)
--- NOTE | 2017-04-20 14:42 | ED MAR SUMMARY ---
..... Medication Administration Record [facility] [address] [place] [address] Patient: HAYLEE MARTIN Visit ID: [id number] 46y, M Weight: 61.2 kg Height/Length: 66 in BMI: 21.8 ALLERGIES: No Known Drug Allergy Given 11:08 04/14/2017 Kaycee Brown R.N. Medication Administered: SOLU-MEDROL [IVP] (METHYLPREDNISOLONE SODIUM SUCC), Dose: 125 mg IVP over 3 minute(s), Site: #1 right hand. Medication Ordered: Solu-MEDROL IV 125 mg (NOW). Given 11:18 04/14/2017 Shanika Solorzano R.N. Medication Administered: ALBUTEROL [NEB TX], Dose: 2.5 mg Nebulizer Neb TX. Medication Ordered: Albuterol Neb Tx 2.5 mg (NOW). Given 11:28 04/14/2017 Shanika Solorzano R.N. Medication Administered: DUONEB [NEB TX] (IPRATROPIUM-ALBUTEROL), Dose: 1 unit dose Nebulizer Neb TX. Medication Ordered: DuoNeb Neb Tx 1 unit dose (NOW). Given 11:44 04/14/2017 Ryan Gardner, Medication Administered: ALBUTEROL [NEB TX], Dose: 2 unit dose Nebulizer Neb TX. Medication Ordered: Albuterol Neb Tx 5 mg (once now).
--- NOTE | 2017-04-20 14:42 | ED MED RECONCILIATION SUMMARY ---
Patient: HAYLEE MARTIN Medication Reconciliation Report [facility] VisitID: [id number] [address] [place] [address] 46y, M Registration Date/Time: 04/14/2017 Weight: 61.2 kg Height/Length: 66 in. BMI: 21.8 ALLERGIES: No Known Drug Allergy The patient's Home Medications are listed below: CONTINUE TAKING THE FOLLOWING MEDICATIONS: Albuterol Sulfate HFA Inhalation The source(s) of the original Home Medication information: Not obtained. The following Medications were given to the patient in the Emergency Department: SOLU-MEDROL [IVP] IVP 125 mg, administered: 04/14/2017 11:08:00 AM Albuterol [Neb Tx] Neb TX 2.5 mg, administered: 04/14/2017 11:18:00 AM Duoneb [Neb Tx] Neb TX 1 unit dose, administered: 04/14/2017 11:28:00 AM Albuterol [Neb Tx] Neb TX 2 unit dose, administered: 04/14/2017 11:44:00 AM The following Medications were prescribed to the patient: Albuterol HFA oral inhaler: inhale 1-2 puffs via spacer every 4 hours as needed for wheezing, difficulty breathing or shortness of breath. Dispense two (2) units. No refill. -- Raghav Salas Dr. Prednisone 50 mg: take 1 orally every day for 5 days. Dispense five (5). No refills. -- Raghav Salas Dr.
== END 2017-04-14 12:45 | disposition home or self-care (01) ==
LOC: ED SRH 10:48
DX: J45.41 Moderate persistent asthma with (acute) exacerbation (principal); R09.02 Hypoxemia; J44.9 Chronic obstructive pulmonary disease, unspecified; Z79.51 Long term (current) use of inhaled steroids